=== PATIENT | male | born 1995 | race Caucasian/White ===

== ENCOUNTER 2024-04-23 06:59 | Emergency (ER) | payer MEDICAID, OTHER ==
[~2024-04-23] VITALS: Ht 157.5 cm; Wt 109.3 kg
[2024-04-23 07:02] VITALS: TEMP 97.3
[2024-04-23 07:37] VITALS: BP 170/100
[2024-04-23 07:58] VITALS: PULSE 94; RESP 13; O2SAT 98
--- NOTE | 2024-04-23 08:24 | ED.PDOC ---
General HPI Comments 29 y.o male presents to the ED for an evaluation of penile erection that presented this morning. 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 Patient denies any discharge, bleeding, swelling, fever, chills, or pain. No other medical history or allergies reported. Chief Complaint: Penile Problem Time Seen by MD: 08:04 Reviewed notes: Nurses Notes, Medications, Allergies Information Source: Patient Mode of Arrival: Ambulatory Severity: Moderate Timing: Hours Duration: Since onset Onset: Spontaneous Symptoms: Other History of: Other (priapism ) Location male: Other Penile discharge: None Modifying factors: None associated signs and symptoms: Other Past Medical History Past Medical History (Other): Priapsim Surgical History: Denies all surgeries Family History Family History: Reviewed,noncontributory to illness Social History Smoker: Non-Smoker Alcohol: Denies ETOH Use Drugs: Denies Drug Use Lives In: Home Constitutional: denies: chills, diaphoresis, fatigue, fever, malaise, sweats, weakness, others EENTM: denies: blurred vision, double vision, ear bleeding, ear discharge, ear drainage, ear pain, ear ringing, eye pain, eye redness, hearing loss, mouth pain, mouth swelling, nasal discharge, nose bleeding, nose congestion, nose pain, photophobia, tearing, throat pain, throat swelling, voice changes, others Respiratory: denies: cough, hemoptysis, orthopnea, SOB at rest, shortness of breath, SOB with excertion, stridor, wheezing, others Cardiovascular: denies: chest pain, dizzy spells, diaphoresis, Dyspnea on exertion, edema, irregular heart beat, left arm pain, lightheadedness, palpitations, PND, syncope, others Gastrointestinal: denies: abdomen distended, abdominal pain, blood streaked bowels, constipated, diarrhea, dysphagia, difficulty swallowing, hematemesis, melena, nausea, poor appetite, poor fluid intake, rectal bleeding, rectal pain, vomiting, others Genitourinary: reports: others (penile erection ); denies: burning, dysuria, flank pain, frequency, hematuria, incontinence, penile discharge, penile sore, pain, testicle pain, testicle swelling, urgency Neurological: denies: dizziness, fainting, headache, left sided numbness, left sided weakness, numbness, paresthesia, pre-existing deficit, right sided numbness, right sided weakness, seizure, speech problems, tingling, tremors, weakness, others Musculoskeletal: denies: back pain, gout, joint pain, joint swelling, muscle pain, muscle stiffness, neck pain, others Integumetry: denies: bruises, change in color, change in hair/nails, dryness, laceration, lesions, lumps, rash, wounds, others Allergic/Immunocompromised: denies: Difficulty Healing, Frequent Infections, Hives, Itching, others Hematologic/Lymphatic: denies: anemia, blood clots, easy bleeding, easy bruising, swollen glands, others Endocrine: denies: excessive hunger, excessive sweating, excessive thirst, excessive urination, flushing, intolerance to cold, intolerance to heat, unexplained weight gain, unexplained weight loss, others Psychiatric: denies: anxiety, bipolar disorder, depression, hopeless, panic disorder, schizophrenia, sleepless, suicidal, others All Other Systems: Reviewed and Negative Physical Exam General Appearance: Moderate Distress HEENT: Normal ENT Inspection, Pharynx Normal, TMs Normal Neck: Full Range of Motion, Non-Tender, Normal, Normal Inspection Respiratory: Chest Non-Tender, Lungs Clear, No Accessory Muscle Use, No Respiratory Distress, Normal Breath Sounds Cardiovascular: No Edema, No JVD, No Murmur, No Gallop, Normal Peripheral Pulses, Regular Rate/Rhythm Breast Exam: Deferred Gastrointestinal: No Organomegaly, Non Tender, No Pulsatile Mass, Normal Bowel Sounds, Soft Genitalia: Deferred Pelvic: Other (Mild tone not completely forearm) Rectal: Deferred Extremities: No calf tenderness, Normal capillary refill, Normal inspection, Normal range of motion, Non-tender, No pedal edema Musculoskeletal : Apperance: Normal Neurologic: Alert, pathology tech II-XII nml as Tested, No Motor Deficits, Normal Affect, Normal Mood, No Sensory Deficits Cerebellar Function: Normal Reflexes: Normal Skin: Dry, Normal Color, Warm Peripheral Pulses: 3+ Radial (R), 3+ Radial (L) Lymphatic: No Adenopathy Was a procedure done? Was a procedure done?: Yes Sedation Sedation?: No Other Procedure Procedure Priapism Indication Injection of phenylephrine Anesthetic y Prep y Success y Notes Patient states he feels much better Differential Diagnosis Kidney stone (Female): N/A Penile/Scrotal: Prostatitis, Phimosis, Hydrocele, Other (priapism ) X-Ray, Labs, Meds, VS Vital Signs Date Time Temp Pulse Resp B/P (MAP) Pulse Ox O2 Delivery O2 Flow Rate FiO2 04/23/24 07:58 94 13 98 Room Air* 0 21 04/23/24 07:37 97.3 98 18 170/100 (123) 96 04/23/24 07:02 97.3 98 18 170/100 (123) 96 97.3 Patient alert. On examination penis not firm. Mildly stiff. Vitals stable. Explained to the patient that it is not completely forearm and he may be able to avoid injection of phenylephrine. Patient insists on getting phenylephrine. Explained to the risk and benefit. He states that he is aware of all the risks and benefits. He felt better after given phenylephrine. Was told to follow up with his primary care physician. Was told to back if there is any problem. Time of 1ST Reevaluation: 08:23 Reevaluation 1ST: Improved Patient Education/Counseling: Diagnosis, Treatment, Prognosis Family Education/Counseling: No Family Present Additional Information The following tests were ordered, and results were reviewed by me: PHA I discussed treatment and results with medical personnel and patient Departure 1 Departure Time of Disposition: 08:41 Impression: Primary Impression: Priapism Disposition: 01 HOME / SELF CARE / HOMELESS Condition: Good Discharged With: Self Critical Care Note Critical Care Time?: No Stability Stability form required: No I personally scribed for LAYLA SIMMONS MD ([email or web address]) on 04/23/24 at 08:24. Electronically submitted by Candi Boone ([facility]). LAYLA SIMMONS MD Apr 23, 2024 08:24
[2024-04-23] MEDS: PHENYLEPHRINE INJ 10 MG in SODIUM CHL 0.9% 19 ML IR ONE (09:45)
== END 2024-04-23 11:01 | disposition home or self-care (01) ==
LOC: ER 06:59
DX: N48.30 Priapism, unspecified (principal)
CPT/HCPCS: 54220; 99284; J2371